=== PATIENT | male | born 1980 | race Caucasian/White ===

== ENCOUNTER 2017-10-15 09:12 | Emergency (ER) | END 2017-10-15 11:15 | disposition home or self-care (01) ==

== ENCOUNTER 2017-12-09 21:18 | Emergency (ER) | END 2017-12-10 | disposition home or self-care (01) ==

== ENCOUNTER 2017-12-11 19:52 | Emergency (ER) | END 2017-12-11 21:32 | disposition left against medical advice (07) ==

== ENCOUNTER 2017-12-15 23:05 | Emergency (ER) | END 2017-12-16 12:25 | disposition home or self-care (01) ==

== ENCOUNTER 2017-12-29 06:37 | Emergency (ER) | END 2017-12-29 10:30 | disposition home or self-care (01) ==

== ENCOUNTER 2018-01-18 21:24 | Emergency (ER) | END 2018-01-19 02:13 | disposition home or self-care (01) ==

== ENCOUNTER 2018-03-07 08:21 | Emergency (ER) | END 2018-03-07 10:35 | disposition home or self-care (01) ==

== ENCOUNTER 2018-05-08 22:40 | Emergency (ER) | END 2018-05-09 04:57 | disposition home or self-care (01) ==

== ENCOUNTER 2018-09-18 21:13 | Emergency (ER) | END 2018-09-19 01:56 | disposition home or self-care (01) ==